=== PATIENT | female | born 1980 | race Caucasian/White ===

== ENCOUNTER 2020-05-17 18:37 | Emergency (ER) | payer OTHER, SELFPAY ==
[2020-05-17 19:02] VITALS: BP 145/94; PULSE 111; RESP 18; TEMP 36.7; O2SAT 98; BMI 21.9
--- NOTE | 2020-05-17 19:09 | HMH.EDUTC ---
[facility] [place] Disposition Clinical Impression: UTI (urinary tract infection) Qualifiers: Urinary tract infection type: site unspecified Hematuria presence: with hematuria Qualified Code(s): N39.0 - Urinary tract infection, site not specified; R31.9 - Hematuria, unspecified Disposition: Home, Self-Care Condition on Discharge: Good Instructions: Urinary Tract Infection, DI for Urinary Tract Infection (UTI), Phenazopyridine Additional Instructions: Drink plenty of fluids. Take tylenol or ibuprofen for pain or fever. Take the medications as directed. Follow up with your regular doctor. GO TO THE ER FOR ANY WORSENING SYMPTOMS The pyridium will make your urine turn orange, this is an expected side effect. It will stain your clothes if it comes into contact with them. Prescriptions: Ciprofloxacin HCl [Cipro 500mg Tab] 500 mg PO BID 7 Days #14 tab Transmission Status: Pending to [id number] Phenazopyridine HCl [Pyridium 200mg Tablet] 200 pow PO TID #6 tab Transmission Status: Pending to [id number] Referrals: PCP,No [Primary Care Provider] - Time of Disposition: 19:13 Medical Decision Making - Medical Records Medical records reviewed: No: I reviewed the patient's medical records. - Jaime Inquiry Pt receiving controlled substance: No Vital Signs: 05/17/20 19:02 Temperature 98.0 F Temperature Source Oral Pulse Rate [Radial] 111 H Respiratory Rate 18 Blood Pressure [Right Arm] 145/94 H Blood Pressure Mean [Right Arm] 111 Blood Pressure Source [Right Arm] Automatic Cuff Blood Pressure Position [Right Arm] Sitting 02 Sat by Pulse Oximetry 98 Oxygen Delivery Method Room Air - Lab Data Lab results reviewed: Yes: I reviewed the patient's lab results. Orders (Tests/Meds): ORDERS Category Date Time Status Urine Culture Stat Micro 05/17/20 19:05 Ordered [facility] [place] HPI - General Stated complaint: Possible UTI Time Seen by Provider: 05/17/20 19:09 Mode of Arrival: Ambulatory Source of Information: Patient Limitations: No Limitations Description of Symptoms (Recalled from Triage Doc. by RN): possible uti HEENT Symptoms (Recalled from RN notes): No Resp Symptoms (Recalled from RN notes): No Skin Symptoms (Recalled from RN notes): No MS Symptoms (Recalled from RN notes): No Functional Status (Recalled from RN notes): wnl - History of Present Illness Provider Complaint: She c/o low back pain and burning while urinating for the past 3 days. - Related Data Previous Rx's Medication Instructions Recorded Ciprofloxacin HCl [Cipro 500mg 500 mg PO BID 7 Days #14 tab 05/17/20 Tab] Phenazopyridine HCl [Pyridium 200 pow PO TID #6 tab 05/17/20 200mg Tablet] Allergies Allergy/AdvReac Type Severity Reaction Status Date / Time Sulfa (Sulfonamide Allergy Verified 05/17/20 19:05 Antibiotics) - Worker's Comp Is this a Worker's Comp case?: No [facility] History - Hepatitis A Screen Drug use history?: No High risk sexual behaviors?: No History of sexually transmitted infection?: No Currently employed?: No Childcare worker?: No Do you have indoor plumbing?: Yes Do you have electricity?: Yes Attestation statement:: This patient has been screened for Hepatitis A risk factors. I have reviewed the patient's past medical history: Yes - Social History Smoking Status: Current every day smoker Tobacco Type: cigarettes # Packs/Day (cigarettes): 1 Alcohol Intake: never Occupational Status: other ROS Obtained: Yes All systems reviewed & no additional complaints - Constitutional Constitutional: Denies chills, Denies fever(s) - Eyes Eyes: Denies eye discharge - ENT Ears, Nose, Mouth, and Throat: Denies sore throat - Cardiovascular Cardiovascular: Denies chest pain - Genitourinary Female Genitourinary: Reports as per HPI Physical Exam - General General appearance: alert, in no apparent distress - Head Head exam: atraumatic, no
[2020-05-17 19:14] LABS: Color,Urine Red (Yellow)
[2020-05-17 19:15] LABS: Apearance,Urine Turbid (Clear); Glucose,Urine (UA) Negative (Negative); PH,Urine 5.5 (5.0-8.5); Protein,Urine 3+ (Negative); Specific Gravity, Urine 1.015 (1.005-1.030)
[2020-05-17 19:16] LABS: Bilirubin,Urine Negative (Negative); Blood, Urine 3+ (Negative); Ketones,Urine Negative (Negative); UTC Leukocyte Esterase,Urine 1+ (Negative); UTC Nitrate,Urine Positive (Negative); Urobilinogen,Urine 0.2 EU/dl (0.2)
[2020-05-17 19:28] VITALS: BP 145/94; PULSE 111; RESP 18; TEMP 36.7; O2SAT 98
== END 2020-05-17 19:29 | disposition home or self-care (01) ==
PROVIDERS: Emergency Provider Nurse Practitioner Family
DX: N30.01 Acute cystitis with hematuria (principal); F17.210 Nicotine dependence, cigarettes, uncomplicated
CPT/HCPCS: 81003; 87086; 87088; 87186; 99201

== ENCOUNTER 2020-08-18 13:13 | Emergency (ER) | payer OTHER, SELFPAY ==
[2020-08-18 14:25] VITALS: BP 117/81; PULSE 99; RESP 14; TEMP 36.3; O2SAT 99; BMI 23.5
--- NOTE | 2020-08-18 14:35 | XR_ITS ---
PROCEDURE: XR CHEST 2V CLINICAL HISTORY: FALL Posttraumatic pain, right upper chest pain COMPARISON: No exams were available for comparison FINDINGS: The cardiomediastinal silhouette and pulmonary vascularity are within normal limits. The lungs are clear without infiltrates, suspicious nodules, or pleural effusions. No acute bony abnormalities. IMPRESSION: No acute findings. Dictated by: Jan Douglass MD 08/19/2020 05:36 Jan Douglass MD in [place] 08/19/2020 05:36
--- NOTE | 2020-08-18 15:02 | HMH.EDUTC ---
[facility] [place] Disposition Clinical Impression: Muscle strain of chest wall Qualifiers: Encounter type: initial encounter Qualified Code(s): S29.011A - Strain of muscle and tendon of front wall of thorax, initial encounter Disposition: Home, Self-Care Condition on Discharge: Good Instructions: Muscle Strain Additional Instructions: motrin and tylenol as needed for pain ice 20 mins every hour if symptoms worsen or no improvement return or be seen in ed. follow up with pcp this week. Referrals: PCP,No [Primary Care Provider] - Time of Disposition: 15:21 Medical Decision Making - Ajime Inquiry Pt receiving controlled substance: No Vital Signs: 08/18/20 14:25 08/18/20 15:09 Temperature 97.3 F L 97.3 F L Temperature Source Oral Pulse Rate 99 H Pulse Rate [Left Brachial] 99 H Respiratory Rate 14 14 Blood Pressure 117/81 Blood Pressure [Left Arm] 117/81 Blood Pressure Mean [Left Arm] 93 Blood Pressure Source [Left Arm] Automatic Cuff Blood Pressure Position [Left Arm] Sitting 02 Sat by Pulse Oximetry 99 Oxygen Delivery Method Room Air Orders (Tests/Meds): ORDERS Category Date Time Status Chest XR 2 view (NOT portable) [XR chest 2V] Stat Exams 08/18/20 14:35 Taken - Radiology Data #1 Image(s): Chest Image Reviewed: Yes I reviewed the patient's radiology image w/the ED provider Preliminary Findings: Normal/NAD, No Fracture Seen [facility] [place] HPI - General Chief complaint: Urgent [facility] Stated complaint: Ao fall 08/12/20, upper body pain Time Seen by Provider: 08/18/20 15:02 Mode of Arrival: Ambulatory Source of Information: Patient Limitations: No Limitations Description of Symptoms (Recalled from Triage Doc. by RN): PATIENT C/O PAIN IN CHEST AREA AFTER FALLING LAST WEDNESDAY HEENT Symptoms (Recalled from RN notes): No Resp Symptoms (Recalled from RN notes): No Skin Symptoms (Recalled from RN notes): No MS Symptoms (Recalled from RN notes): Yes Functional Status (Recalled from RN notes): WNL - History of Present Illness Provider Complaint: 40 yr old female presnets for rt upper chest pain.pt states she had a fall at work on wednesday and fell landing with fist to rt upper chest. pt states all the other soreness has improved but the pain in chest contiunes. - Related Data Previous Rx's Medication Instructions Recorded Ciprofloxacin HCl [Cipro 500mg 500 mg PO BID 7 Days #14 tab 05/17/20 Tab] Phenazopyridine HCl [Pyridium 200 pow PO TID #6 tab 05/17/20 200mg Tablet] Allergies Allergy/AdvReac Type Severity Reaction Status Date / Time Sulfa (Sulfonamide Allergy Verified 05/17/20 19:05 Antibiotics) - Worker's Comp Is this a Worker's Comp case?: No [facility] History - Hepatitis A Screen Drug use history?: No High risk sexual behaviors?: No History of sexually transmitted infection?: No Currently employed?: No Childcare worker?: No Do you have indoor plumbing?: Yes Do you have electricity?: Yes Attestation statement:: This patient has been screened for Hepatitis A risk factors. I have reviewed the patient's past medical history: Yes - Social History Smoking Status: Current every day smoker Tobacco Type: cigarettes # Packs/Day (cigarettes): 1 Alcohol Intake: never Occupational Status: other ROS Obtained: Yes Systems reviewed as appropriate & no additional complaints - Constitutional Constitutional: Reports system reviewed and no additional complaints, except as docu, Denies fever(s) - Eyes Eyes: Reports system reviewed and no additional complaints, except as docu, Denies change in vision - ENT Ears, Nose, Mouth, and Throat: Reports system reviewed and no additional complaints, except as docu, Denies bleeding gums - Cardiovascular Cardiovascular: Reports system reviewed and no additional complaints, except as docu, Denies dyspnea - Respiratory Respiratory: Yes system reviewed and no additional complaints, except as docu, No change in phlegm co
[2020-08-18 15:09] VITALS: BP 117/81; PULSE 99; RESP 14; TEMP 36.3; O2SAT 99
== END 2020-08-18 15:26 | disposition home or self-care (01) ==
PROVIDERS: Emergency Provider Nurse Practitioner Family
DX: S29.011A Strain of muscle and tendon of front wall of thorax, initial encounter (principal); W01.0XXA Fall on same level from slipping, tripping and stumbling without subsequent striking against object, initial encounter; Y92.69 Other specified industrial and construction area as the place of occurrence of the external cause; Y99.0 Civilian activity done for income or pay; F17.210 Nicotine dependence, cigarettes, uncomplicated; Z88.2 Allergy status to sulfonamides
CPT/HCPCS: 71046; 99202; G0463

== ENCOUNTER → 2020-08-23 16:15 | Outpatient (CLI) | payer OTHER, SELFPAY ==
--- NOTE | 2020-08-23 16:19 | XR_ITS ---
PROCEDURE: XR RIBS RT MIN 3V W CXR1V CLINICAL INDICATION: OTHER CHEST PAIN Right-sided rib pain COMPARISON: CR XR CHEST 2V from 08/18/2020 FINDINGS: Frontal view of the chest shows no acute finding. There is hypoplastic right 1st rib. No acute fracture or lytic or blastic change apparent. Mild lumbar scoliosis convex left. IMPRESSION: No acute findings. Dictated by: Jan Douglass MD 08/23/2020 16:50 Jan Douglass MD in [place] 08/23/2020 16:50
== END ==
PROVIDERS: PCP Family Medicine; Visit Provider Family Medicine
DX: R07.89 Other chest pain (principal)
CPT/HCPCS: 71101

== ENCOUNTER 2025-04-11 16:48 | Emergency (ER) | payer BC, SELFPAY ==
--- OUTSIDE RECORDS SUMMARY | 2025-02-22 08:00 | XMS_ITS | Encounter Summary ---
[facility] Address [address] [place] [address] Care Team Providers Care Driver/Guide Name Role Phone Provider, No Known Primary Care Provider Unavail able Reason for Visit * Reason Comments annual Encounter Details Date Type Department Care Team ([facility] st Contact Info) Description 02/22/2025 8:00 AM EDT Office Visit [facility] [address] [place] [address] Susan Carrasquillo, INSPECTOR CIRCUITRY NEGATIVE [address] [facility] [address] [place] [address] IUD (intrauterine device) in place (Primary Dx); Women's annual routine gynecological examination; Encounter for screening mammogram for malignant neoplasm of breast Social History Tobacco Use Types Packs/Day Years Used Date Smoking Tobacco: Every Day Cigarettes 1 20 Smokeless Tobacco: Never Tobacco Cessation:Ready to Q uit: Not Asked; Counseling Given: Not Answered Comments:Started when I was 19 Alcohol Use Standard Drinks/Week Comments Yes 1 (1 standard drink = 0.6 oz pur e alcohol) Only drink on occasion Comments No Sex and Gender Information Value Date Recorded Sex Assigned at Female 02/21/2025 7:44 AM EDT Legal Sex Female 12:05 PM EDT Gender Identity Not on file Sexual Orientation Straight 02/21/2025 7: 44 AM EDT Occupation Industry Job Start Date Job End Date Not on file Not on file Not on file Not on file documented as of this encounter Last Filed Vital Signs Vital Sign Reading Time Taken Comments Blood Pressure 124/80 02/22/2025 8:34 AM EDT Pulse - - Temperature - - Respiratory Rate - - Oxygen Saturation - - Inhaled Oxygen Concentration - - Weight 66.8 kg (147 lb 3.2 oz) 02/22/2025 8:34 A M EDT Height 170.2 cm (5' 7 ) 02/22/2025 8:34 AM EDT Body Mass Index 23.05 02/22/2025 8:34 AM EDT documented in this encounter Progress Notes * Susan Carrasquillo, JET - 02/22/2025 8:00 AM EDT Images from the original note were not included. 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 female, , who presents for annual well woman exam as a established patient. There were no changes to her medical or surgical history since her last visit.. No LMP recorded (lmp unknown). Patient has had an implant. Her periods are absent, secondary to Mirena.Marital Status: . She is sexually active. She has not had new partners.. STD testing recommendations have been explained to the patient and she declines STD testing. 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 Insertion date: 02/2018- [place] Desires to: continue contraception History of migraines: yes without aura Last Pap : 04/10/2022. Result: negative. HPV: negative. Last Completed Pap Smear Awaiting Completion PAP SMEAR (Every 3 Years) Order placed this encounter 02/22/2025 Order placed for LIQUID-BASED PAP SMEAR WITH HPV GENOTYPING REGARDLESS OF INTERPRETATION(JANA,COR,MAD) by Susan Carrasquillo, JET 04/10/2022 LIQUID-BASED PAP SMEAR, [facility] (JANA[facility]) History of abnormal Pap smear: no Family history of uterine, colon, breast, or ovarian cancer: no Performs monthly Self-Breast Exam: no Last mammogram: 02/28/2024. Done at [facility]. There is a copy in the chart. Scheduled for March Last Completed Mammogram Awaiting Completion MAMMOGRAM (Every 2 Years) Scheduled for 03/27/2025 09/12/2024 Order placed for Mammo Diagnostic Digital Tomosynthesis Bilateral With CAD by Jaxon Tran 09/11/2024 Mammo Diagnostic Right With CAD 03/09/2024 Mammo Diagnostic Digital Tomosynthesis Right With CAD 02/28/2024 Mammo Screening Digital Tomosynthesis Bilateral With CAD 08/27/2022 Mammo Diagnostic Digital Tomosynthesis Left With CAD Only the first 5 history entries have been loaded, but more history exists. Colonoscopy: has never had a colonoscopy or cologuard Exercises Regularly: no Feelings of Anxiety or Depression: no Tobacco Usage?: Yes Vincent Strange reports that she has been smoking cigarettes. She has a 20 pack-year smoking history. She has never used smokeless tobacco. Current Outpatient Medications: Levonorgestrel (MIRENA) 20 MCG/DAY intrauterine device IUD, 1 each by Intrauterine route. 03/03/2018, Disp: , Rfl: Patient denies the need for medication refills today. OB History 2 Para 2 Term 2 AB Living 2 SAB IAB Ectopic Molar Multiple Live Births 2 Past Medical History: Diagnosis Date Depression 2012 After of 2nd child Migraine 2000 no migraines recently Urinary tract infection 2020 last UTI was 2020 Past Surgical History: Procedure Laterality Date CHOLECYSTECTOMY 2009 TONSILLECTOMY WISDOM TOOTH EXTRACTION 2004 removed 2003 Health Maintenance Topic Date Due Pneumococcal Vaccine 0-49 (1 of 2 - PCV) Never done TDAP/TD VACCINES (1 - Tdap) Never done HEPATITIS C SCREENING Never done ANNUAL PHYSICAL Never done COVID-19 Vaccine ( - 2023- season) Never done Annual Gynecologic Pelvic and Breast Exam 02/22/2025 PAP SMEAR 04/10/2025 INFLUENZA VACCINE 05/16/2025 MAMMOGRAM 09/11/2026 The additional following portions of the patient's history were reviewed and updated as appropriate: allergies, current medications, past family history, past medical history, past social history, past surgical history, and problem list. Review of Systems Constitutional: Negative. Respiratory: Negative. Cardiovascular: Negative. Gastrointestinal: Negative. Genitourinary: Negative. Musculoskeletal: Positive for bursitis. Right shoulder Psychiatric/Behavioral: Negative. I have reviewed and agree with the HPI, ROS, and historical information as entered above. Susan Gerardo, INSPECTOR CIRCUITRY NEGATIVE Objective BP 124/80 Ht 170.2 cm (67 ) Wt 66.8 kg (147 lb 3.2 oz) LMP (LMP Unknown) BMI 23.05 kg/m?? Physical Exam Constitutional: Appearance: Normal appearance. Neck: Thyroid: No thyroid mass or thyromegaly. Pulmonary: Effort: Pulmonary effort is normal. Chest: Chest wall: No mass. Breasts: Right: Normal. No inverted nipple, mass, nipple discharge or skin change. Left: Normal. No inverted nipple, mass, nipple discharge or skin change. Abdominal: General: There is no distension. Palpations: Abdomen is soft. There is no mass. Tenderness: There is no abdominal tenderness. Hernia: No hernia is present. Genitourinary: General: Normal vulva. Labia: Right: No rash. Left: No rash. Vagina: Normal. Cervix: No cervical motion tenderness or lesion. Uterus: Normal. Adnexa: Right adnexa normal and left adnexa normal. Right: No mass or tenderness. Left: No mass or tenderness. Comments: IUD strings visible and appropriate Neurological: Mental Status: She is alert. 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 Pap guidelines reviewed. Reviewed monthly self breast exams. Instructed to call with lumps, pain, or breast discharge. Ordered Mammogram today Return in about 1 year (around 02/22/2026) for Annual physical. Info given for PCP to establish in regards to shoulder pain Plan to remove and replace mirena IUD next year with annual Susan Carrasquillo APRN 02/22/2025 documented in this encounter Plan of Treatment Upcoming Encounters Date Type Department Care Team (Late st Contact Info) Description 02/25/2026 8:15 AM EDT Office Visit [facility] [address] [place] [address] Susan Carrasquillo, INSPECTOR CIRCUITRY NEGATIVE [address] [facility] [address] [place] [address] documented as of this encounter Procedures Procedure Name Priority Date/Time Associated Diagnosis Comments LIQUID-BASED PAP SMEAR WITH HPV GENOTYPING REGARDLESS OF INTERPRETATION, [facility] ([facility]) Routine 02/22/2025 9:41 AM EDT Women's annual routine gynecological examination documented in this encounter Results * LIQUID-BASED PAP SMEAR WITH HPV GENOTYPING REGARDLESS OF INTERPRETATION (JANA,COR,MAD) (02/22/2025 9:41 AM EDT) Reference Lab Report [facility] [address] [place] [address] or [phone] Robbie Hein M.D., Cash Applications Manager PATIENT NAME LABORATORY NO. [id number] VINCENT STRANGE. [id number] AGE SEX SSN CLIENT REF # [facility] 44 1980 F [id number] [facility] JIMI MCQUEEN REQUESTING Dillon [place] [address] SUSAN CARRASQUILLO DATE COLLECTED DATE RECEIVED DATE REPORTED 02/22/2025 02/22/2025 02/23/2025 ThinPrep Pap with f[facility]piog[employer] [facility] DIAGNOSIS: Negative for intraepithelial lesion or malignancy Multiple factors can influence accuracy of Pap tests; therefore, screening at regular intervals is necessary for early cancer detection. SPECIMEN ADEQUACY: SATISFACTORY FOR EVALUATION Transformation zone is present. Partially obscuring inflammation is present. SOURCE OF SPECIMEN: CERVICAL/ENDOCERV ICAL SLIDES: 1 CLINICAL HISTORY: Women's annual routine gynecological examination IUD IRREGULAR MENSES HPV HR-HPV POOL: Negative The Aptima HPV assay is an in vitro nucleic acid amplification test for the qualitative detection of E6/E7 viral messenger RNA from 14 high risk types of HPV in cervical specimens. The high risk HPV types detected include: 16, 18, 31, 33, 35, 39, 45, 51, 52, 56, 58, 59, 66, 68 SENIOR DEVOPS ENGINEER: LOGAN BAEZ (ASCP) CPT CODES: 95754, 55555 02/23/2025 1:30 PM EDT [facility] ThinPrep Vial Collection / Unknown 02/22/2025 9:41 AM EDT 02/22/2025 9:41 AM EDT Susan Carrasquillo INSPECTOR CIRCUITRY NEGATIVE PATHOLOGY/CYTOLOGY ORDERA BLES Final Result [facility]
[address] [place] [address], [place] [phone] documented in this encounter Visit Diagnoses Diagnosis IUD (intrauterine device) in place- Primary Presence of intrauterine contraceptive device Women's annual routine gynecological examination Encounter for screening mammogram for malignant neoplasm of breast documented in this encounter Care Teams Driver/Guide Relationship Specialty Start Date End Date Provider, [place] [address] PCP - General 02/10/24 documented as of this encounter
--- OUTSIDE RECORDS SUMMARY | 2025-03-27 08:13 | XMS_ITS | Encounter Summary ---
Author Organization [facility] Address [address] [place] [place] [address] Care Team Providers Care Cold Mill Inspector Name Role Phone Provider, No Known Primary Care Provider Unavail able Reason for Referral * Diagnostic Imaging (Routine) - Closed Specialty Diagnoses / Procedures Referred By Ariana ferris Referred To Contact Radiology Diagnoses Abnormal mammogram Procedures Mammo Diagnostic Digital Tomosynthesis Bilateral With CAD CHG DIGITAL BREAST TOMOSYNTHESIS BILATERAL UT TOMOSYNTHESIS, MAMMO Susan Carrasquillo, BULK GAS SPECIALIST [address] [place] [address] Phone: tel: fax: Referral ID Status Reason Start Date Expiration Date Visits Re quested Visits Authorized [id number] Closed 09/12/2024 09/12/2025 1 1 Reason for Visit * Diagnostic Imaging (Routine) - Closed Specialty Diagnoses / Procedures Referred By Ariana ferris Referred To Contact Radiology Diagnoses Abnormal mammogram Procedures Mammo Diagnostic Digital Tomosynthesis Bilateral With CAD CHG DIGITAL BREAST TOMOSYNTHESIS BILATERAL UT TOMOSYNTHESIS, MAMMO Susan Carrasquillo, BULK GAS SPECIALIST [address] [place] [id number] Phone: tel: fax: Referral ID Status Reason Start Date Expiration Date Visits Re quested Visits Authorized [id number] Closed 09/12/2024 09/12/2025 1 1 Encounter Details Date Type Department Care Team (Latest Contact Info) Description 03/27/2025 8:13 AM EDT - 03/27/2025 11:59 PM EDT Hospital Encounter [facility]MOGRAPHY [place] [address] [facility] [address] [place] [id number] Abnormal mammogram Discharge Disposition: Home or Self Care Social History Tobacco Use Types Packs/Day Years Used Date Smoking Tobacco: Every Day Cigarettes 1 20 Smokeless Tobacco: Never Comments:Started when I was 19 Alcohol Use [...] on file documented as of this encounter Medications at Time of Discharge Levonorgestrel (MIRENA) 20 MCG/DAY intrauterine device IUD 1 each by Intrauterine route. 03/03/2018 documented as of this encounter Plan of Treatment Upcoming Encounters Date Type Department Care Team (Late st Contact Info) Description 02/25/2026 8:15 AM EDT Office Visit [facility] OBGYN [address] [place] [address] Susan Carrasquillo, BULK GAS SPECIALIST [address] [facility] [address] [place] [address] documented as of this encounter Procedures Procedure Name Priority Date/Time Associated Diagnosis Comments MAMMO DIAGNOSTIC DIGITAL TOMOSYNTHESIS BILATERAL W CAD Routine 03/27/2025 11:18 AM EDT Abnormal mammogram documented in this encounter Results * Mammo Diagnostic Digital Tomosynthesis Bilateral With CAD (03/27/2025 11:18 AM EDT) Anatomical Region Laterality Modality Breast Bilateral Mammography 03/27/2025 11:4 1 AM EDT Impressions 03/27/2025 11:45 AM EDT 1. Stable focal nodular asymmetry undergoing follow-up in the right 9:00 distribution. 2. Benign findings left breast RECOMMENDATION: Recommend a follow-up bilateral diagnostic mammogram in 1 year. ACR BI-RADS CATEGORY: 3, PROBABLY BENIGN CAD was utilized. The standard false-negative rate of mammography is between 10% and 25%. Complex patterns or increased breast density will markedly elevate the false-negative rate of mammography. A letter, in lay terminology, with the results of this exam was given to the patient at the time of the visit. At our facility, a triangular marker is positioned over a palpable area of concern indicated by the patient. A inaja marker is placed over a visible skin lesion. A linear marker indicates a scar. _ Physician Order Diagnostic 12 Month follow up Mammogram with Breast Ultrasound if needed. Diagnosis: Abnormal Mammogram 03/27/2025 11:[address] Jelly De La Cruz MD on Narrative 03/27/2025 11:45 AM EDT BILATERAL DIAGNOSTIC MAMMOGRAM WITH TOMOSYNTHESIS AND A FOCUSED LEFT BREAST ULTRASOUND CLINICAL INDICATION: 44-year-old patient presents for follow-up imaging of breast and routine imaging on the left. There is no reported breast complaints. She reports no family history of breast cancer. TECHNIQUE: Low dose full field digital breast tomosynthesis imaging was performed consisting of bilateral CC and MLO views. In addition, right MLO and left CC focal compression views were performed as well as a left ML view all with tomosynthesis. A focused left breast ultrasound was performed. COMPARISON: 09/11/2024, 03/09/2024, 02/28/2024, 08/27/2022, 06/15/2022 FINDINGS: There are scattered areas of fibroglandular density. Right breast: The fibroglandular pattern appears not significantly changed. This includes the focal nodular asymmetry being followed in the posterior 9:00 distribution felt to likely correlate to a cluster of cysts sonographically. No masses, architectural distortion or suspicious calcifications are seen. Left breast: There is stable obscured nodularity in the mid upper outer quadrant shown to correlate to clustered cysts on previous breast ultrasound imaging. There is a 0.4 cm oval isodense mass with partially obscured borders in the 9:00 periareolar region with an associated calcification. The calcification appears to layer on ML imaging and this may reflect a small cyst with associated milk of calcium. The fibroglandular pattern is otherwise stable. No spiculated masses, architectural distortion or suspicious calcifications are seen. Focused ultrasound imaging of the left breast does confirm in the 9:00 distribution, 2 cm from the nipple a 0.4 cm cyst. No solid masses or abnormal areas of shadowing are seen in the imaged portions of the left breast. us Shavon Lawrence MD IMG MAMMOGRAPHY ORDERABLES Fin al Result documented in this encounter Visit Diagnoses Diagnosis Abnormal mammogram Abnormal mammogram, unspecified documented in this encounter Care Teams Cold Mill Inspector Relationship Specialty Start Date End Date Provider, [place] [address] PCP - General 02/10/24 documented as of this encounter
--- OUTSIDE RECORDS SUMMARY | 2025-03-27 11:18 | XMS_ITS | Encounter Summary ---
[facility] Address [address] [place] [address] Care Team Providers Care Career Placement Services Counselor Name Role Phone Provider, No Known Primary Care Provider Unavail able Reason for Referral * Diagnostic Imaging (Routine) - Closed Specialty Diagnoses / Procedures Referred By Contac t Referred To Contact Radiology Diagnoses Abnormal mammogram Procedures US Breast Left Limited Susan Carrasquillo, HUMAN RESOURCES MANAGER MANUFACTURING [address] [facility] [address] [place] [address] Phone: tel: fax: Referral ID Status Reason Start Date Expiration Date Visits Re quested Visits Authorized [id number] Closed 03/27/2025 06/26/2026 1 1 Reason for Visit * Diagnostic Imaging (Routine) - Closed Specialty Diagnoses / Procedures Referred By Contac t Referred To Contact Radiology Diagnoses Abnormal mammogram Procedures US Breast Left Limited Susan Carrasquillo, HUMAN RESOURCES MANAGER MANUFACTURING [address] [place] [address] Phone: tel: fax: Referral ID Status Reason Start Date Expiration Date Visits Re quested Visits Authorized [id number] Closed 03/27/2025 06/26/2026 1 1 Encounter Details Date Type Department Care Team (Latest Contact Info) Description 03/27/2025 11:18 AM EDT - 03/27/2025 11:59 PM EDT Hospital Encounter [facility] ULTRASOUND [place] [address] [place] [id number] Abnormal mammogram Discharge Disposition: Home or Self [...] Description 02/25/2026 8:15 AM EDT Office Visit [facility] OBGYN [address] [place] [address] Susan Carrasquillo, HUMAN RESOURCES MANAGER MANUFACTURING [address] [facility] [address] [place] [address] documented as of this encounter Procedures Procedure Name Priority Date/Time Associated Diagnosis Comments US BREAST LEFT LIMITED Routine 03/27/2025 11:41 AM EDT Abnormal mammogram documented in this encounter Results * US Breast Left Limited (03/27/2025 11:41 AM EDT) Anatomical Region Laterality Modality Breast Left Ultrasound 03/27/2025 11:4 1 AM EDT Impressions 03/27/2025 [...] of concern indicated by the patient. A seneca marker is placed over a visible skin [...] imaged portions of the left breast. us Jelly De La Cruz MD [facility] [place] Final Result documented in this encounter Visit Diagnoses Diagnosis Abnormal mammogram Abnormal mammogram, unspecified documented in this encounter Care Teams Career Placement Services Counselor Relationship Specialty Start Date End Date Provider, [place] [address] PCP - General 02/10/24 documented as of this encounter
[2025-04-11 16:58] VITALS: BP 131/77; PULSE 80; RESP 16; TEMP 36.4; O2SAT 100; BMI 23.5
--- NOTE | 2025-04-11 17:02 | ED_ITS ---
<Statement entered by Jaskaran Toure DO - 04/12/25 07:55> I was consulted by the BRINA, and we discussed the complexity of problems being addressed. I approved the treatment and management plan for this patient's care in the emergency department, thus performing a substantive portion of the medical decision making. I did independently evaluate and assess this patient. Agree with BRINA documentation above. Essentially this patient has recently been on tirzepatide but is now restarted a GLP-1 agonist and her provider prescribed semaglutide. She states that after taking her first dose of semaglutide today she has begun experiencing severe intractable nausea and vomiting throughout the day. Her abdominal exam was benign and she has no tenderness therefore I did not feel that she needs a CT scan of the abdomen and pelvis at this time. I have low suspicion for acute surgical intra-abdominal pathology. I think that an alternative diagnosis related to semaglutide use such as pancreatitis or gastroparesis is more likely. Labs are reassuring and do not suggest pancreatitis at this time. She has no significant electrolyte derangement or acute kidney injury. I have discussed risk and benefits of taking semaglutide with the patient, and she acknowledges understanding. Patient was ultimately stable for discharge home after resolution of symptoms Jaskaran Toure DO Discharge Plan Disposition Patient Disposition: Home, Self-Care Condition: Good Prescriptions Prescriptions: New ondansetron 4 mg tablet,disintegrating 4 mg PO Q6H PRN (Reason: nausea and vomiting) Qty: 20 0RF No Action phenazopyridine 200 MG tablet 200 pow PO TID Qty: 6 0RF ciprofloxacin HCl 500 MG tablet 500 mg PO BID 7 Days Qty: 14 0RF Activity Restrictions/Add. Instructions Additional Instructions/Restrictions: You were evaluated on an emergency basis. It is very important that you follow- up with your primary care provider and any specialist who we discussed within the next 2 days in order to better assess your health more comprehensively. For example, incidental findings on imaging or laboratory results that were performed today may be discovered, which do not require immediate medical care, but may impact your health in the future. If your symptoms worsen or persist, please return to the emergency department immediately for reassessment. Take all medications as prescribed. In queue for allowing me to participate in your health care, and I hope you feel better soon. Clinical Impressions Clinical Impression: Vomiting Instructions Patient Instructions: DI for Vomiting -- Adult Print Language Print Language: Slovenian Discharge ED Provider: Jaskaran Toure General Adult HPI General Chief complaint: Nausea/Vomiting/Diarrhea Stated complaint: Vomiting Time Seen by Provider: 04/11/25 17:02 Mode of Arrival: Ambulatory Source of Information: Patient Description of Symptoms (Recalled from ER Triage Doc. by RN): patient presents to the ED for severe nausea/vomiting. patient reports she started semaglutide this morning and the nausea/vomiting have been present ever since. History of Present Illness HPI narrative: 44-year-old female presents emergency department complaints of nausea and vomiting since earlier this morning. She reports that she took her first injection of semaglutide today and has had the symptoms since that time. She denies diarrhea, abdominal pain, fevers. Related Data Previous Rx's ?Medication ?Instructions ?Recorded ciprofloxacin HCl 500 mg tablet 500 mg PO BID 7 days # 14 tabs 05/17/20 phenazopyridine 200 mg tablet 200 pow PO TID #6 tabs 1 ondansetron 4 mg disintegrating 4 mg PO Q6H PRN nausea and 04/11/25 tablet vomiting #20 tabs Allergies Allergy/AdvReac Type Severity Reaction Status Date / Time Sulfa (Sulfonamide Allergy Verified 05/17/20 19:05 Antibiotics) [facility] Disclaimer: The information contained in this section may have been updated after the patient was seen, as this information can be updated by other users. Social History Smoking Status: Current every day smoker tobacco type: cigarettes packs per day: 1 second hand exposure: Yes alcohol intake: never current occupational status: other Travel in the last 8 weeks?: None Have you lived/traveled outside US in past 30 days?: No Contact w/someone who lives/traveled outside US past 30 days?: No Exposure to someone with infectious disease in past 14 days?: No Do you have a fever (greater than 100.4 F or 38 C)?: No Have you tested positive for COVID-19?: No Exposed to someone with COVID-19 in past 14 days?: No Do you have a sore throat?: No Do you have a cough?: No Do you have any weakness?: No Do you have any diarrhea?: No Are you experiencing any unusual bleeding?: No Do you have any muscle aches/pain?: No Do you have any abdominal pain?: No Are you experiencing loss of taste or smell?: No ROS Obtained: Yes All systems reviewed & no additional complaints except as documented Gastrointestinal Gastrointestingal: Reports nausea and vomiting Physical Exam Narrative Physical exam: General: Awake, aware, in no acute distress HEENT: Normocephalic, no evidence of trauma CV: RRR, no murmurs, rubs, or gallops Pulm: CTA bilaterally with no rhonchi, rales, wheezes ABD: Nontender, no swelling, guarding, or rebound tenderness Psych, appropriate mood and affect General General appearance: alert Respiratory Respiratory exam: Present normal lung sounds bilaterally Cardiovascular Cardiovascular exam: Present regular rate Neurological Exam Neurological exam: Present alert Medical Decision Making Medical Records Screening: Per USPSTF and CDC recommendations, given the prevalence of disease in our region, it is our hospital?s policy to screen for HIV and viral Hepatitis for all patients aged 18 and over and those with ongoing risk factors. Jaime Inquiry Pt receiving controlled substance: No Vital Signs: 04/11/25 16:58 04/11/25 17:30 04/11/25 18:00 Temperature 97.6 F Temperature Source Temporal Artery Scan Pulse Rate 72 82 Pulse Rate [Right Radial] 80 Respiratory Rate 16 Blood Pressure 130/81 127/82 Blood Pressure [Right Arm] 131/77 Blood Pressure Mean 106 97 Blood Pressure Mean [Right Arm] 95 Blood Pressure Source [Right Arm] Automatic Cuff Blood Pressure Position [Right Arm] Sitting 02 Sat by Pulse Oximetry 100 98 98 Oxygen Delivery Method Room Air Lab Data Lab Results 04/11/25 17:05: WBC 7.4, RBC 4.75, Hgb 15.5, Hct 46.3, MCV 97.5, MCH 32.6 H, MCHC 33.5, RDW 12.9, Plt Count 179, MPV 11.4 H, Neut % (Auto) 80.9 H, Lymph % (Auto) 13.1, Freestone % (Auto) 3.7, Eos % (Auto) 0.9, Baso % (Auto) 0.7, Neut # (Auto) 6.0, Lymph # (Auto) 1.0, Freestone # (Auto) 0.3, Eos # (Auto) 0.1, Baso # (Auto) 0.1, Sodium 139, Potassium 4.4, Chloride 107, Carbon Dioxide 25, Anion Gap 11.4, BUN 13, Creatinine 0.70, Estimated Creat Clear 112, Estimated GFR 92, Est GFR ( Amer) 111, Glucose 100, Calcium 9.7, Total Bilirubin 0.9, AST 32, ALT 18, Alkaline Phosphatase 48, Total Protein 7.5, Albumin 4.7, Globulin 2.8, Albumin/Globulin Ratio 1.7, Lipase 73 04/11/25 17:05 04/11/25 17:05 Orders (Tests/Meds): ED MEDICATIONS Discontinued Medications Generic Name Dose Route Start Last Admin Trade Name Freq PRN Reason Stop Dose Admin Sodium Chloride 1,000 mls @ 999 mls/hr 04/11/25 17:02 04/11/25 18:14 Sod Chlor 0.9% 1000ml Bag IV 04/11/25 18:02 Infused .Q1H1M ONE Infusion Ondansetron HCl 4 mg 04/11/25 17:02 04/11/25 17:16 Ondansetron 4mg/2ml Vial IV 04/11/25 17:03 4 mg ONCE ONE Administration ORDERS Category Date Time Status CBC w/Auto Diff [Complete Blood Count Auto Diff] Stat Lab 04/11/25 17:05 Completed CMP [Comprehensive Metabolic Panel] Stat Lab 04/11/25 17:05 Completed Lipase Stat Lab 04/11/25 17:05 Completed Urinalysis and Microscopic Stat Lab 04/11/25 17:03 Ordered Urine , HCG Qual. Stat Lab 04/11/25 17:03 Ordered Medical Decision Narrative: Initial impression of presenting illness: 44-year-old female presents the emergency department complaints of nausea and vomiting since earlier this morning when she started semaglutide. She denies diarrhea fever, abdominal pain. Differential diagnosis includes but is not limited to: Gastritis, gastroenteritis, reaction to recent semaglutide injection, dehydration, electrolyte abnormality acute kidney injury Patient arrives hemodynamically stable, afebrile, without respiratory distress with vital signs interpreted by myself. Initial physical exam unremarkable Abdomen soft nontender with normal active bowel sounds. Initial diagnostic plan: Laboratory studies including lipase, urinalysis, normal saline bolus for hydration, Zofran for nausea Results from initial plan were reviewed and interpreted by myself, pertinent positives include: Laboratory studies were nonactionable. Interventions in the ED: Patient was given normal saline bolus for hydration as well as Zofran for nausea. Patient was made aware of the results and the findings, upon reevaluation patient has remained stable throughout stay, symptoms have improved. Upon reevaluation patient states she is feeling much better. He is tolerating p.o. without difficulty at this time. Disposition: Reviewed findings today's workup with patient inform no acute abnormalities were noted on her laboratory studies. Advised her symptoms are likely related to starting the semaglutide. Advised her that we will discharge with a prescription for Zofran to help with her nausea. Commended that she increase her fluid intake with a bland diet and slowly advance as tolerated. Instructed her to return to the emergency department if she is unable to tolerate p.o., develops abdominal pain, or fevers otherwise she should follow-up with her PCP regarding her reaction to this medication. Patient was agreeable to plan of care. Patient made aware of findings and had a detailed discussion with symptomatic care and return precautions, patient voiced understanding. Critical Care Critical Care Time Critical Care Time: No
--- OUTSIDE RECORDS SUMMARY | 2025-04-11 17:07 | XMS_ITS | Encounter Summary ---
[facility] Address [address] [place] [address] Care Team Providers Care Gettering Filament Machine Operator Name Role Phone Provider, No Known Primary Care Provider Unavail able Encounter Details Date Type Department Care Team ([facility] Contact Info) Description 02/26/2025 Results Follow-Up [facility] OBGYN [address] [place] [address] Susan Carrasquillo, EVENING ANCHOR [address] [place] [address] Social History Tobacco Use Types Packs/Day Years [...] on file documented as of this encounter Plan of Treatment Upcoming Encounters Date Type Department Care Team ([facility] Contact Info) Description 02/25/2026 8:15 AM EDT Office Visit [facility] OBGYN [address] [place] [address] Susan Carrasquillo, EVENING ANCHOR [address] [place] [id number] documented as of this encounter Visit Diagnoses Not on filedocumented in this encounter Care Teams Gettering Filament Machine Operator Relationship Specialty Start Date End Date Provider, [place] [address] PCP - General 02/10/24 documented as of this encounter
--- OUTSIDE RECORDS SUMMARY | 2025-04-11 17:07 | XMS_ITS | Encounter Summary ---
[facility] Address [address] [place] [address] Care Team Providers Care Shank Boner Name Role Phone Provider, No Known Primary Care Provider Unavail able Encounter Details Date Type Department Care Team (Latest Contact Info) Description 02/22/2025 Travel Social History Tobacco Use Types Packs/Day Years [...] Description 02/25/2026 8:15 AM EDT Office Visit [facility] OBGYN [address] [place] [address] Susan Carrasquillo, MANAGER CAREER [address] [facility] [address] [place] [address] documented as of this encounter Visit Diagnoses Not on filedocumented in this encounter Care Teams Shank Boner Relationship Specialty Start Date End Date Provider, No Known [facility] [place] [address] PCP - General 02/10/24 documented as of this encounter
--- OUTSIDE RECORDS SUMMARY | 2025-04-11 17:07 | XMS_ITS | Encounter Summary ---
Author Organization [facility] Address [address] [place] [address] Care Team Providers Care Saddle Maker Name Role Phone Provider, No Known Primary Care Provider Unavail able Encounter Details Date Type Department Care Team (Latest Contact Info) Description 03/27/2025 Travel Social History Tobacco Use Types Packs/Day [...] Description 02/25/2026 8:15 AM EDT Office Visit [facility] OBGYN [address] [place] [address] Susan Carrasquillo, VETERINARY X RAY OPERATOR [address] [facility] [address] [place] [address] documented as of this encounter Visit Diagnoses Not on filedocumented in this encounter Care Teams Saddle Maker Relationship Specialty Start Date End Date Provider, No Known [facility] [place] [address] PCP - General 02/10/24 documented as of this encounter
--- OUTSIDE RECORDS SUMMARY | 2025-04-11 17:07 | XMS_ITS | Clinical Summary ---
[facility] Address [address] [place] [address] Care Team Providers Care Childhood Teacher Name Role Phone Provider, No Known Primary Care Provider Unavail able Allergies Active Allergy Reactions Criticality Noted Date Comments Sulfa Antibiotics Hives 11/29/2020 Medications Levonorgestrel (MIRENA) 20 MCG/DAY intrauterine device IUD 1 each by Intrauterine route. 03/03/2018 Active Active Problems Problem Noted Date Diagnosed Date IUD (intrauterine device) in place 04/10/2022 Overview (04/10/2022): Placed 02/2018, due for replacement 2025 Encounters Date Type Department Care Team Description 03/27/2025 11:18 AM EDT - 03/27/2025 11:59 PM EDT Hospital Encounter [facility]OUND [place] [address] [place] [phone] Abnormal mammogram Discharge Disposition: Home or Self Care 03/27/2025 8:13 AM EDT - 03/27/2025 11:59 PM EDT Hospital Encounter [facility]GRAPHY [place] [address] [place] [phone] Abnormal mammogram Discharge Disposition: Home or Self Care 03/27/2025 Travel 02/26/2025 Results Follow-Up [facility] O[facility] [address] [place] [address] Susan Carrasquillo, SENIOR JAVA DEVELOPER 02/22/2025 8:00 AM EDT Office Visit [facility] OBGYN [address] [place] [phone] Susan Carrasquillo, SENIOR JAVA DEVELOPER IUD (intrauterine device) in place (Primary Dx); Women's annual routine gynecological examination; Encounter for screening mammogram for malignant neoplasm of breast 02/22/2025 Travel from Last 3 Months Family History Medical History Relation Name Comments Coronary artery disease Father Raheem Dece ased Hyperlipidemia Father Raheem Hypertension Father Raheem Lung cancer Father Raheem Sjogren's syndrome Mother Breast cancer Neg Hx Ovarian cancer Neg Hx Relation Name Status Comments Father Raheem Mother Social History Tobacco Use Types Packs/Day Years [...] file Not on file Not on file Last Filed Vital Signs Vital Sign Reading Time Taken Comments Blood Pressure 124/80 02/22/2025 8:34 AM EDT Pulse 90 11/29/2020 1:50 PM EDT Temperature 37.1 C (98.7 F) 11/29/2020 1:50 PM EDT Respiratory Rate 18 11/29/2020 1:50 PM EDT Oxygen Saturation - - Inhaled Oxygen Concentration - - Weight 66.8 kg (147 lb 3.2 oz) 02/22/2025 8:34 A M EDT Height 170.2 cm (5' 7 ) 02/22/2025 8:34 AM EDT Body Mass Index 23.05 02/22/2025 8:34 AM EDT Plan of Treatment Upcoming Encounters Date Type Department Care Team (Late st Contact Info) Description 02/25/2026 8:15 AM EDT Office Visit [facility] OBGYN [address] [place] [address] Susan Carrasquillo, SENIOR JAVA DEVELOPER [address] [place] [phone] Health Maintenance Due Date Last Done Comments Pneumococcal Vaccine 0-49 (1 of 2 - PCV) 2001 TDAP/TD VACCINES (1 - Tdap) 2001 ANNUAL PHYSICAL 11/29/2020 HEPATITIS C SCREENING 11/29/2020 COVID-19 Vaccine (1 - 2023-2 5 season) 2024 INFLUENZA VACCINE 05/16/2025 Annual Gynecologic Pelvic an d Breast Exam 02/23/2026 02/22/2025 MAMMOGRAM 03/27/2027 03/27/2025, 08/17, 03/09/2024, Additional history exists PAP SMEAR 02/23/2028 02/22/2025, 04/10/2022 Procedures Procedure Name Priority Date/Time Associated Diagnosis Comments US BREAST LEFT LIMITED Routine 03/27/2025 11:41 AM EDT Abnormal mammogram MAMMO DIAGNOSTIC DIGITAL TOMOSYNTHESIS BILATERAL W CAD Routine 03/27/2025 11:18 AM EDT Abnormal mammogram LIQUID-BASED PAP SMEAR WITH HPV GENOTYPING REGARDLESS OF INTERPRETATION, [facility] ([facility]) Routine 02/22/2025 9:41 AM EDT Women's annual routine gynecological examination from Last 3 Months Results * US Breast Left Limited (03/27/2025 [...] of concern indicated by the patient. A menominee marker is placed over a visible skin [...] breast. us Jelly De La Cruz MD IMG US ORDERABLES Final Result * Mammo Diagnostic Digital Tomosynthesis Bilateral With [...] of concern indicated by the patient. A menominee marker is placed over a visible skin [...] MD IMG MAMMOGRAPHY ORDERABLES Fin al Result * LIQUID-BASED PAP SMEAR WITH HPV GENOTYPING REGARDLESS OF INTERPRETATION ([facility]NA,COR,[facility]AD) (02/22/2025 9:41 AM EDT) Reference Lab Report [facility] [address] [place] [address] or [phone] Robbie Hein M.D., Employment Assistant PATIENT NAME [facility] NO[facility] JONES. [id number] AGE SEX SSN CLIENT REF # [facility] ([place] [id number] 1980 F [id number] Darlene MCQUEEN REQUESTING [place] [address] SUSAN CARRASQUILLO DATE COLLECTED DATE RECEIVED DATE REPORTED 02/22/2025 02/22/2025 02/23/2025 ThinPrep Pap with [facility] DIAGNOSIS: Negative for intraepithelial lesion [...] 51, 52, 56, 58, 59, 66, 68 INSULATION FOREMAN: LOGAN BAEZ (ASCP) CPT CODES: 92080, [id number] 02/23/2025 1:30 PM EDT [facility] ThinPrep Vial Collection / Unknown 02/22/2025 9:41 AM EDT 02/22/2025 9:41 AM EDT Susan Carrasquillo SENIOR JAVA DEVELOPER PATHOLOGY/CYTOLOGY ORDERA BLES Final Result [facility]
[address] [place] [address], from Last [address] [place] [address] [place] [address] PPO Care Teams Childhood Teacher Relationship Specialty Start Date End Date Provider, [place] [address] PCP - General 02/10/24
[2025-04-11] MEDS: 0.9 % SODIUM CHLORIDE 1000ML 1,000 ML 999 ML IV (17:15)
[2025-04-11] MEDS: ONDANSETRON 4MG/2ML VIAL 4 MG IV (17:16)
[2025-04-11 17:30] VITALS: BP 130/81; PULSE 72; O2SAT 98
[2025-04-11 17:30] LABS: Hematocrit 46.3 % (37.0-47.0); Hemoglobin 15.5 g/dL (12.2-16.2); Immature Granulocytes % 0.7 %; Mean Corpuscular HGB Conc 33.5 g/dL (31.8-35.4); Mean Corpuscular Hemoglobin 32.6 pg (27.0-31.2); Mean Corpuscular Volume 97.5 fl (81-99); Nucleated Red Blood Cells % 0 %; Platelet Count 179 K/mm3 (142-424); Red Blood Count 4.75 M/mm3 (4.20-5.40); Red Cell Distribution Width-SD 46.6 fL; White Blood Count 7.4 K/mm3 (4.8-10.8)
[2025-04-11 17:56] LABS: Albumin Level 4.7 g/dl (3.5-5.0); Chloride 107 mmol/L (98-107)
[2025-04-11 17:57] LABS: Potassium 4.4 mmoL/L (3.5-5.1); Sodium 139 mmol/L (136-145)
[2025-04-11 17:59] LABS: Alanine Aminotransferase 18 U/L (12-78); Albumin/Globulin Ratio 1.7 (1.1-1.8); Alkaline Phosphatase 48 U/L (38-126); Anion Gap 11.4 mEq/L (5-15); Aspartate Amino Transferase 32 U/L (14-36); Bilirubin,Total 0.9 mg/dl (0.2-1.3); Blood Urea Nitrogen 13 mg/dl (7-17); Carbon Dioxide 25 mmol/L (22.0-30.0); Creatinine Clearance Estimated 112 mL/min (50-200); Creatinine,Serum 0.70 mg/dl (0.52-1.04); Estimated Glomerular Filt Rate 92 ml/min (>60); GFR (African American) 111 ML/MIN (>60); Globulin 2.8 g/dL (1.3-3.2); Total Protein,Serum 7.5 g/dl (6.3-8.2)
[2025-04-11 18:00] VITALS: BP 127/82; PULSE 82; O2SAT 98
[2025-04-11 18:00] LABS: Calcium 9.7 mg/dl (8.4-10.2); Glucose 100 mg/dl (74-100); Lipase 73 U/L (23-300)
[2025-04-11 18:24] VITALS: BP 127/82; PULSE 78; RESP 16; TEMP 36.8; O2SAT 98
== END 2025-04-11 18:29 | disposition home or self-care (01) ==
PROVIDERS: Nurse Practitioner Family; Emergency Provider Student in an Organized Health Care Education/Training Program
DX: R11.2 Nausea with vomiting, unspecified (principal)
CPT/HCPCS: 80053; 83690; 85025; 96361; 96374; 99284; J2405; J7030